=== PATIENT | female | born 1980 | race Two or more races ===

== ENCOUNTER 2023-10-25 08:18 | Outpatient (CLI) | payer OTHER | END 2023-10-25 08:22 | disposition home or self-care (01) | LOC: EDBD 08:18 → PRENATAL 08:18 | PROVIDERS: ATTEND Obstetrics & Gynecology Maternal & Fetal Medicine | DX: O36.80X0 Pregnancy with inconclusive fetal viability, not applicable or unspecified (principal); Z36.82 Encounter for antenatal screening for nuchal translucency; Z36.9 Encounter for antenatal screening, unspecified; O09.529 Supervision of elderly multigravida, unspecified trimester; O10.019 Pre-existing essential hypertension complicating pregnancy, unspecified trimester; Z3A.11 11 weeks gestation of pregnancy ==

== ENCOUNTER → 2023-11-06 15:59 | Outpatient (CLI) | payer OTHER | END | disposition home or self-care (01) | LOC: PRENATAL 15:59 | PROVIDERS: ATTEND Obstetrics & Gynecology Maternal & Fetal Medicine | DX: Z76.1 Encounter for health supervision and care of foundling (principal) ==

== ENCOUNTER → 2024-02-19 10:39 | Outpatient (CLI) | payer OTHER ==
[~2024-02-19 10:39] MED LIST: ALCOHOL PADS1 EACH TOP; HUMULIN N100 UNIT/2 SUBCUTANEO; INSULIN SYRING1 EA29 SUBCUTANEO; NIFEDIPINE ER30 M1 PO
== END | disposition home or self-care (01) ==
LOC: PRENATAL 10:39
PROVIDERS: ATTEND Obstetrics & Gynecology Maternal & Fetal Medicine
DX: O26.843 Uterine size-date discrepancy, third trimester (principal); O24.419 Gestational diabetes mellitus in pregnancy, unspecified control; O09.523 Supervision of elderly multigravida, third trimester; O16.3 Unspecified maternal hypertension, third trimester; O34.219 Maternal care for unspecified type scar from previous cesarean delivery; Z3A.28 28 weeks gestation of pregnancy

== ENCOUNTER 2024-03-18 09:06 | Outpatient (CLI) | payer OTHER ==
[~2024-03-18 09:06] MED LIST changes: +NIFE60TA3 PO
== END 2024-03-18 09:07 | disposition home or self-care (01) ==
LOC: PRENATAL 09:06
PROVIDERS: ATTEND Obstetrics & Gynecology Maternal & Fetal Medicine
DX: O26.843 Uterine size-date discrepancy, third trimester (principal); O24.419 Gestational diabetes mellitus in pregnancy, unspecified control; O36.8130 Decreased fetal movements, third trimester, not applicable or unspecified; O09.523 Supervision of elderly multigravida, third trimester; O16.3 Unspecified maternal hypertension, third trimester; Z3A.32 32 weeks gestation of pregnancy